=== PATIENT | female | born 1935 | race African-American/Black ===

== ENCOUNTER 2018-06-21 17:35 | Inpatient (IN) | payer MEDICARE ==
[~2018-06-21] VITALS: Ht 165.1 cm; Wt 90.3 kg
[2018-06-21 19:27] LABS: BASOPHILS % 0.8 % (0.0-2.0); CHLORIDE 110 mEq/L (98-107); EOSINOPHILS % 2.4 % (0.0-5.0); HEMATOCRIT. 41.8 % (36.0-48.0); HEMOGLOBIN. 13.6 g/dL (12.0-16.0); MEAN CORPUSCULAR HEMOGLOBIN 30.3 pg (28.0-32.0); MEAN CORPUSCULAR VOLUME 93.1 fL (81.0-99.0); MEAN PLATELET VOLUME 9.7 fl (7.4-10.4); MONOCYTES % 8.4 % (2.0-8.0); NEUTROPHILS % 52.4 % (40.0-76.0); PLATELET 173 x1000/uL (130-400); RED CELL DISTRIBUTION WIDTH 13.7 % (11.6-14.6)
[2018-06-21 19:29] LABS: ETHANOL BLOOD < 10 mg/dL
[2018-06-21 19:30] LABS: INR 1.1; PARTIAL THROMBOPLASTIN TIME 24.1 sec (23.4-31.0); PROTHROMBIN TIME 10.7 sec (9.1-11.1)
[2018-06-21] MEDS ORDERED: ASPIRIN 81MG TABLET PO ONE (21:00)
[2018-06-21 21:20] LABS: CLARITY URINE CLEAR (CLEAR); COLOR URINE YELLOW (YELLOW); KETONES URINE TRACE (NEGATIVE); LEUKOCYTE ESTERASE URINE NEGATIVE (NEGATIVE); NITRITE URINE NEGATIVE (NEGATIVE); OCCULT BLOOD URINE NEGATIVE (NEGATIVE); PROTEIN URINE NEGATIVE (NEGATIVE); SPECIFIC GRAVITY URINE 1.023 (1.005-1.030); UROBILINOGEN URINE 0.2 E.U./dL (0.2-1.0)
[2018-06-21 21:32] LABS: *AMPHETAMINES SCREEN URINE NEGATIVE (NEGATIVE); *BARBITURATES SCREEN URINE NEGATIVE (NEGATIVE); *BENZODIAZEPINES SCREEN URINE NEGATIVE (NEGATIVE); *COCAINE SCREEN URINE NEGATIVE (NEGATIVE); METHADONE URINE SCREEN NEGATIVE (NEGATIVE); OPIATES URINE SCREEN NEGATIVE (NEGATIVE)
[2018-06-21 21:33] LABS: CANNABINOID URINE SCREEN NEGATIVE (NEGATIVE); PHENCYCLIDINE URINE SCREEN NEGATIVE (NEGATIVE)
[2018-06-21] MEDS ORDERED: CLONIDINE 0.1MG TABLET PO ONE (22:00)
[2018-06-22 03:30] VITALS: BP 143/62
[2018-06-22 04:00] VITALS: BP 143/62
[2018-06-22] MEDS ORDERED: ACETAMINOPHEN 650MG/20.3ML UDC PO PRN (06:15)
[2018-06-22] MEDS ORDERED: DEXTROSE 50% WATER 50ML SYRINGE IV PRN ×2 (06:15)
[2018-06-22] MEDS: BLOOD SUGAR DIAGNOSTIC STRIP TEST SCH ×4 (07:00→20:46)
[2018-06-22] MEDS: INSULIN LISPRO 100 UNITS/ML SUBCUT SCH ×4 (07:26→20:46)
[2018-06-22 08:00] VITALS: BP 142/68
[2018-06-22] MEDS ORDERED: MAGNESIUM HYDROXIDE 400MG/5ML 30ML UDC PO PRN (08:00)
[2018-06-22] MEDS: ASPIRIN 81MG TABLET PO SCH (09:07)
[2018-06-22 12:00] VITALS: BP 105/55
[2018-06-22] MEDS: GLIPIZIDE 5MG XL TABLET PO SCH (12:00)
[2018-06-22] MEDS: MEMANTINE HCL 10MG TABLET PO SCH ×2 (13:00→20:46)
[2018-06-22] MEDS: ENOXAPARIN 40MG/0.4ML SYR SUBCUT SCH (13:00)
[2018-06-22 16:00] VITALS: BP 107/53
[2018-06-22] MEDS ORDERED: CILO100T MT (16:48)
[2018-06-22] MEDS ORDERED: MEMA10TA2 PO (18:07)
[2018-06-22] MEDS ORDERED: GLIP5TAB12 PO (18:16)
[2018-06-22] MEDS: OXYBUTYNIN CHLORIDE 5MG TABLET PO SCH (20:45)
[2018-06-22] MEDS ORDERED: ZOLPIDEM TARTRATE 5MG TABLET PO PRN (21:00)
[2018-06-23] VITALS: BP 122/60
[2018-06-23 04:00] VITALS: BP 122/49
[2018-06-23] MEDS: BLOOD SUGAR DIAGNOSTIC STRIP TEST SCH ×3 (06:26→18:05)
[2018-06-23] MEDS: INSULIN LISPRO 100 UNITS/ML SUBCUT SCH ×3 (06:26→17:40)
[2018-06-23] MEDS: GLIPIZIDE 5MG XL TABLET PO SCH (07:40)
[2018-06-23] MEDS: ENOXAPARIN 40MG/0.4ML SYR SUBCUT SCH (09:00)
[2018-06-23] MEDS: MEMANTINE HCL 10MG TABLET PO SCH (09:00)
[2018-06-23] MEDS: ASPIRIN 81MG TABLET PO SCH (09:04)
[2018-06-23] MEDS: OXYBUTYNIN CHLORIDE 5MG TABLET PO SCH (09:05)
[2018-06-23 12:00] VITALS: BP 101/52
[2018-06-23 16:00] VITALS: BP 106/48
[2018-06-23 17:19] VITALS: BP 106/48
== END 2018-06-23 19:30 | disposition home or self-care (01) | DRG 69 ==
LOC: ER 17:35 → 8WST 21:51 → EDBEDREQTM 21:54 → EDBEDREQ 21:54 → ENRESERV 06-22 02:26
PROVIDERS: ADMIT Specialist; ATTEND Specialist
DX: G45.9 Transient cerebral ischemic attack, unspecified (principal); H40.9 Unspecified glaucoma; E66.09 Other obesity due to excess calories; E78.00 Pure hypercholesterolemia, unspecified; E78.5 Hyperlipidemia, unspecified; I12.9 Hypertensive chronic kidney disease with stage 1 through stage 4 chronic kidney disease, or unspecified chronic kidney disease; N18.3 Chronic kidney disease, stage 3 (moderate); F02.80 Dementia in other diseases classified elsewhere, unspecified severity, without behavioral disturbance, psychotic disturbance, mood disturbance, and anxiety; G30.9 Alzheimer's disease, unspecified; E11.22 Type 2 diabetes mellitus with diabetic chronic kidney disease; H54.7 Unspecified visual loss; M19.90 Unspecified osteoarthritis, unspecified site; Z79.82 Long term (current) use of aspirin; Z79.84 Long term (current) use of oral hypoglycemic drugs; Z82.3 Family history of stroke; Z82.49 Family history of ischemic heart disease and other diseases of the circulatory system; Z86.73 Personal history of transient ischemic attack (TIA), and cerebral infarction without residual deficits; Z98.41 Cataract extraction status, right eye; Z98.42 Cataract extraction status, left eye; Z79.899 Other long term (current) drug therapy; Z90.10 Acquired absence of unspecified breast and nipple; Z85.3 Personal history of malignant neoplasm of breast; Z92.3 Personal history of irradiation; Z68.33 Body mass index [BMI] 33.0-33.9, adult
CPT/HCPCS: 36415; 70551; 71045; 80061; 80305; 82962; 83036; 83880; 84443; 84484; 93005; 93880; 93970; 97162; 99285; G0482; J1650